=== PATIENT | male | born 1980 | race Two or more races ===

== ENCOUNTER 2023-11-11 20:44 | Emergency (ER) | payer OTHER ==
[~2023-11-11] VITALS: Ht 175.3 cm; Wt 74.8 kg
[2023-11-11 21:35] VITALS: BP 124/86; TEMP 98.2; O2SAT 99
[2023-11-11] MEDS ORDERED: CEPH500T PO (21:48)
[2023-11-11] MEDS ORDERED: TDAP [DIPH/PERTUSSIS/TET] 0.5 ML VIAL IM ONE (21:51)
[2023-11-11] MEDS: TDAP [DIPH/PERTUSSIS/TET] 0.5 ML VIAL IM ONE (21:58)
== END 2023-11-11 22:27 | disposition home or self-care (01) ==
LOC: ER 20:48
DX: S61.211A Laceration without foreign body of left index finger without damage to nail, initial encounter (principal); W26.0XXA Contact with knife, initial encounter; Y93.89 Activity, other specified; Y92.89 Other specified places as the place of occurrence of the external cause; Y99.8 Other external cause status
CPT/HCPCS: 90715